=== PATIENT | male | born 1955 | race Caucasian/White ===

== ENCOUNTER 2016-11-26 10:09 | Day surgery (SDC) | payer OTHER ==
--- NOTE | 2016-11-25 21:41 | GHP ---
[f rep st] PREOP HISTORY AND PHYSICAL DATE OF ADMISSION: 11/26/2016 He will be in Outpatient on Saturday, November 26, 2016. PROBLEM: Status post total knee arthroplasty with postoperative stiffness. HISTORY OF PRESENT ILLNESS: The patient is a 61-year-old man on whom I performed a left total knee arthroplasty on October 08, 2016. He has failed to regain satisfactory postoperative range of jimmie on. He had a lot of trouble with swelling and stiffness postoperatively. He is admitted for a clos ed manipulation. PAST MEDICAL HISTORY: I did a right [employer] hip resurfacing on him in 2011. Overall he is very healthy. CURRENT MEDICATIONS: Adderall 15 mg per day. DRUG ALLERGIES: None. PHYSICAL EXAMINATION: LUNGS: Clear. HEART: Regular rhythm. No murmurs. EXTREMITIES: Pertinent findings limited to his left knee. He has moderate swelling in the knee, leg, and ankle. His inci dickson has healed. He has a 10 degree flexion contracture and further flexion to 80 degrees. IMPRESSION ON ADMISSION: Status post left total knee arthroplasty with postoperative stiffness. He will undergo a closed manipulation. The surgery has been described to him including the risks, com plications, expectations, and nonsurgical options. I have advised him that it will be difficult to improve much on his extension. There is a risk of fracture or other soft tissue rupture or damage. All his questions have been answered, and he consents to surgery. Copy requested to: Dr. West Noble [facility] /[id number]/MODL
[2016-11-26] MEDS ORDERED: LIDOCAINE 1% 5 ML SDV ONE (10:23)
[2016-11-26] MEDS ORDERED: LIDOCAINE 1% 5 ML SDV ID PRN (10:48)
[2016-11-26] MEDS ORDERED: LR 1,000 ML IV ONE (10:48)
[2016-11-26] MEDS ORDERED: ceFAZolin 2 GM/DEXTROSE 100 ML IV ONE (11:00)
[2016-11-26] MEDS ORDERED: MIDAZOLAM 2 MG/2 ML VIAL ONE (11:53)
[2016-11-26] MEDS ORDERED: fentaNYL 100 MCG/2 ML INJ ONE (12:07)
[2016-11-26] MEDS ORDERED: LIDOCAINE 2% 5 ML SDV ONE (12:11)
[2016-11-26] MEDS ORDERED: PROPOFOL 200 MG/20 ML VIAL ONE (12:11)
[2016-11-26] MEDS ORDERED: KETOROLAC 30 MG/1 ML SDV ONE (12:11)
[2016-11-26] MEDS ORDERED: BUPIVACAINE/EPI 0.5% 30 ML SDV ONE (12:12)
--- NOTE | 2016-11-26 13:03 | GOP ---
[f rep st] OPERATIVE REPORT DATE OF OPERATION: SURGEON: West Reid MD UI DESIGNER: Rich Dietz. ANESTHESIA: General. ANESTHESIOLOGIST: Dr. Figueroa Francois. PREOPERATIVE DIAGNOSIS: Status post left total knee arthroplasty with postoperative stiffness. POSTOPERATIVE DIAGNOSIS: Status post left total knee arthroplasty with postoperative stiffness. PROCEDURE PERFORMED: Closed manipulation of left total knee arthroplasty. FINDINGS: DESCRIPTION OF PROCEDURE: The patient was brought to the operating room on his hospital [facility]. He was given general anesthesia on the [facility]. A time-out procedure was performed to verify the correct patient identity and the correct surgical side. His left knee was manipulated with flexion and posterior translation. Pre manipulation he had a 10-degree flexion contracture and only flexed about 70 degrees. Between 70 and 90 degrees, I encountered quite a bit of resistance and I could feel and hear adhesions rupturing. I was able to manipulate him back to about 125 degrees. I also gained about 5 degrees of extension. At the end of the operation just with gravity on the weight of the leg, he had 115 degrees of flexion. With a little bit of pressure, I could take him from lacking 5 degrees of full extension to 120 degrees of flexion. At the conclusion of the procedure, his collateral ligaments were stable. The knee was prepped with ChloraPrep. I injected 30 cc of 0.5% Marcaine with epinephrine. The puncture was covered with a Band-Aid and the knee was wrapped with a 6 inch Esteban wrap. He was awakened from anesthesia, transferred [facility] and taken to the PACU in satisfactory condition. There were no recognized intraoperative complications. /[id number]/MODL MTDD
== END 2016-11-26 15:05 | disposition home health service (06) ==
LOC: FSGY 10:09
PROVIDERS: ATTEND Orthopaedic Surgery
PROC: 0SSDXZZ Reposition Left Knee Joint, External Approach (ICD-10-PCS; principal; 2016-11-26 11:30)
DX: T84.84XA Pain due to internal orthopedic prosthetic devices, implants and grafts, initial encounter (principal); T84.89XA Other specified complication of internal orthopedic prosthetic devices, implants and grafts, initial encounter; Z96.652 Presence of left artificial knee joint
CPT/HCPCS: J0690; J1885; J2250; J2704; J3010